=== PATIENT | female | born 1950 | race Caucasian/White ===

== ENCOUNTER 2016-09-20 09:27 | Day surgery (SDC) | payer MEDICARE, OTHER ==
[~2016-09-20] VITALS: Ht 157.5 cm; Wt 63.6 kg
[~2016-09-20 09:27] MED LIST: 0.9% SODIUM CHLORIDE 10 ML SYRINGE IVP PRN; ACET1TAB12 PO; FURO20 PO; LEVO100T4 PO; LISI-661 PO; METOPROLOL TARTRATE 50 MG TABLET PO ONE; OMEG100033 PO; OMEP20 PO; OXYM30SP27 NASAL; POTA8CAP10 PO; ROSU10 PO
[2016-09-20] MEDS ORDERED: 0.9% SODIUM CHLORIDE 10 ML SYRINGE IVP ONE (09:59)
[2016-09-20] MEDS ORDERED: METOPROLOL TARTRATE 50 MG TABLET PO ONE (10:15)
[2016-09-20 10:23] LABS: ANION GAP 9 mmol/L (8-16); CALCIUM, TOTAL 9.4 mg/dL (8.8-10.5); CARBON DIOXIDE 27 mmol/L (22-29); CHLORIDE 103 mmol/L (98-107); CREATININE 0.84 mg/dL (0.60-1.30); GLOMERULAR FILTR. RATE CALC > 60 mL/min (>60); POTASSIUM 4.5 mmol/L (3.5-5.1); SODIUM SERUM 139 mmol/L (136-145); UREA NITROGEN, BLOOD 21 mg/dL (7-18)
[2016-09-20] MEDS ORDERED: IOVERSOL 350 MG/ML 100 ML VIAL ONE (10:33)
[2016-09-20] MEDS ORDERED: SODIUM CHLORIDE 0.9% 100 ML ONE (10:34)
[2016-09-20] MEDS ORDERED: IOVERSOL 350 MG/ML 150 ML VIAL ONE (10:34)
[2016-09-20] MEDS ORDERED: NITROGLYCERIN 400 MCG/SUBLINGUAL SPRAY 4.9 GM BOTTLE SL ONE (12:34)
[2016-09-20] MEDS ORDERED: METOPROLOL TARTRATE 5 MG/5 ML VIAL ONE (12:34)
== END 2016-09-20 13:40 | disposition home or self-care (01) ==
LOC: SDS 09:27 → EDSTATUS 11:00 → SDS 13:40
PROVIDERS: ATTEND Internal Medicine Cardiovascular Disease
DX: R07.9 Chest pain, unspecified (principal)
CPT/HCPCS: 36415; 75574; 80048; 93005; J7050; Q9967; J3490

== ENCOUNTER 2018-09-11 21:56 | Emergency (ER) | payer MEDICARE, OTHER ==
[~2018-09-11] VITALS: Ht 152.4 cm; Wt 66.4 kg
[~2018-09-11 21:56] MED LIST changes: -0.9% SODIUM CHLORIDE 10 ML SYRINGE IVP PRN; -METOPROLOL TARTRATE 50 MG TABLET PO ONE; -ROSU10 PO; +ROSU10TA22 PO
[2018-09-11] MEDS ORDERED: METO25 PO (22:32)
[2018-09-11] MEDS ORDERED: LEVO88TA4 PO (22:32)
[2018-09-11] MEDS ORDERED: ASPI-556 PO (22:32)
[2018-09-11 23:05] LABS: BASOPHILS % (AUTO) 0.4 % (0.0-2.0); EOSINOPHILS % (AUTO) 1.3 % (1.0-6.0); HEMATOCRIT 41.3 % (36-46); HEMOGLOBIN 14.5 g/dL (12.0-16.0); LYMPHOCYTES # (AUTO) 2.3 K/uL (1.0-4.8); LYMPHOCYTES % (AUTO) 28.7 % (22.0-44.0); MEAN CORPUSCULAR HEMOGLOBIN 32.2 pg (26.0-34.0); MEAN CORPUSCULAR HGB CONC 35.1 G/dL (31.0-37.0); MEAN CORPUSCULAR VOLUME 92 fL (80-100); MONOCYTES # (AUTO) 0.3 K/uL (0.1-1.0); MONOCYTES % (AUTO) 3.4 % (2.0-9.0); NEUTROPHILS # (AUTO) 5.4 K/uL (1.8-7.7); NEUTROPHILS % (AUTO) 66.2 % (40.0-70.0); PLATELET COUNT (AUTO) 193 K/uL (150-450); RED BLOOD CELL COUNT(AUTO) 4.49 MIL/uL (4.00-5.20); RED CELL DISTRIBUTION WIDTH 14.5 % (11.5-14.5)
[2018-09-11 23:28] LABS: ANION GAP 7 mmol/L (8-16); CALCIUM, TOTAL 9.4 mg/dL (8.8-10.5); CARBON DIOXIDE 29 mmol/L (22-29); CHLORIDE 108 mmol/L (98-107); CREATININE 0.88 mg/dL (0.60-1.30); GLOMERULAR FILTR. RATE CALC > 60 mL/min (>60); GLUCOSE,RANDOM 86 mg/dL (70-110); POTASSIUM 3.9 mmol/L (3.5-5.1); SODIUM SERUM 144 mmol/L (136-145); UREA NITROGEN, BLOOD 10 mg/dL (7-18)
[2018-09-11 23:34] LABS: ALANINE AMINOTRANSFERASE 12 U/L (12-78); ALKALINE PHOSPHATASE 68 U/L (46-116); ASPARTATE AMINOTRANSFERASE 9 U/L (15-37); BILIRUBIN,TOTAL 0.4 mg/dL (0.1-1.0); TOTAL PROTEIN, SERUM 7.4 g/dL (6.4-8.2)
[2018-09-12 02:55] VITALS: BP 138/80
== END 2018-09-12 03:15 | disposition home or self-care (01) ==
LOC: EMS 21:57
DX: I95.9 Hypotension, unspecified (principal); I10 Essential (primary) hypertension; M79.7 Fibromyalgia; Z90.710 Acquired absence of both cervix and uterus; Z79.82 Long term (current) use of aspirin; Z79.899 Other long term (current) drug therapy; Z88.8 Allergy status to other drugs, medicaments and biological substances
CPT/HCPCS: 93005